=== PATIENT | male | born 2000 | race Caucasian/White ===

== ENCOUNTER 2020-05-09 12:46 | Emergency (ER) | payer OTHER ==
[~2020-05-09] VITALS: Ht 175.3 cm; Wt 77.1 kg
[2020-05-09 12:48] VITALS: BP 94/74
--- NOTE | 2020-05-09 12:59 | NUR ---
PATIENT AMBULATED WITH STEADY GAIT TO BED 2.
--- NOTE | 2020-05-09 13:09 | NUR ---
C/O SORE THROAT X YESTERDAY. PT AOX 4 AFIBRILE , AMBULATORY WITH STEADY GAIT , PINK PALPEBRAL CONJUNCTIVA , ANICTERIC SCLERA , TONSILAR CONGESTION , SCE , FLAT SOFT ABDOMEN. MED HX: DENIES
--- NOTE | 2020-05-09 13:21 | NUR ---
DR MISHRA AT BEDSIDE EVALUATING PT.
[2020-05-09] MEDS ORDERED: DEXAMETHASONE 4 MG/ML VIAL PO ONE (13:30)
--- NOTE | 2020-05-09 13:35 | NUR ---
RICHARD COVID 19 DONE .
[2020-05-09 13:56] VITALS: BP 98/70
--- NOTE | 2020-05-09 13:57 | NUR ---
Patient discharged with v/s stable. Written and verbal after care instructions given and explained regarding covid 19 Patient alert, oriented and verbalized understanding of instructions. Ambulatory with steady gait. All questions addressed prior to discharge. ID band removed. Patient advised to follow up with PMD. Rx of augmentin given. Patient educated on indication of medication including possible reaction and side effects. Opportunity to ask questions provided and answered.
== END 2020-05-09 13:57 | disposition home or self-care (01) ==
LOC: MED 12:46
DX: J02.0 Streptococcal pharyngitis (principal); B34.9 Viral infection, unspecified; F17.200 Nicotine dependence, unspecified, uncomplicated; F12.90 Cannabis use, unspecified, uncomplicated; Z20.828 Contact with and (suspected) exposure to other viral communicable diseases
CPT/HCPCS: 87426; 99283; J1100